=== PATIENT | female | born 1980 | race Caucasian/White ===

== ENCOUNTER 2017-10-29 05:34 | Outpatient (CLI) | payer OTHER ==
[~2017-10-29] VITALS: Ht 154.9 cm; Wt 67.1 kg
[~2017-10-29 05:34] MED LIST: HYDR-757 PO; NAPR-1071 PO; OXYC-202 PO
[2017-10-29] MEDS ORDERED: BCP PO (12:33)
== END 2017-10-29 12:44 ==
LOC: PREOP 05:34
PROVIDERS: ATTEND Surgery
DX: Z01.818 Encounter for other preprocedural examination (principal); K82.8 Other specified diseases of gallbladder

== ENCOUNTER 2018-08-03 06:15 | Outpatient (CLI) | payer OTHER ==
[~2018-08-03] VITALS: Ht 154.9 cm; Wt 62.6 kg
[~2018-08-03 06:15] MED LIST changes: +BCP PO; +HYDR-34 PO; +HYDR-4226 PO; -HYDR-757 PO; -OXYC-202 PO; +OXYC1TAB12 PO
[2018-08-03] MEDS ORDERED: MULT-35 PO (11:07)
== END 2018-08-03 11:10 | disposition home or self-care (01) ==
LOC: PREOP 06:15
PROVIDERS: ATTEND Surgery
DX: Z01.818 Encounter for other preprocedural examination (principal)

== ENCOUNTER 2018-08-08 11:21 | Day surgery (SDC) | payer OTHER ==
[~2018-08-08] VITALS: Ht 154.9 cm; Wt 62.6 kg
[~2018-08-08 11:21] MED LIST changes: +MULT-35 PO
[2018-08-08] MEDS ORDERED: LACTATED RINGERS 1,000 ML IV STA (11:39)
[2018-08-08] MEDS ORDERED: HURRICAINE EXT TUBE (BENZOCAINE) XX PRN (11:45)
[2018-08-08] MEDS ORDERED: LACTATED RINGERS 1,000 ML IV ONE (11:45)
[2018-08-08 12:00] VITALS: BP 125/81
[2018-08-08] MEDS ORDERED: PROPOFOL INJECTION 50 ML IV ONE (12:32)
[2018-08-08] MEDS ORDERED: MIDAZOLAM 2 MG/2 ML (VERSED) VIAL ONE (12:33)
--- NOTE | 2018-08-08 12:41 | Progress Note-Pre Operative ---
Pre-Operative Progress Note H&P Reviewed The H&P was reviewed, patient examined and no changes noted. Time Seen by Provider: 12:34 Date H&P Reviewed: Aug 08, 2018 Time H&P Reviewed: 12:35 Pre-Operative Diagnosis: Rectal Bleed, Gastritis ANTWAN DEL RIO DO Aug 08, 2018 12:41
--- NOTE | 2018-08-08 13:14 | Progress Note-Post Operative ---
Post-Operative Progess Note Surgeon (s)/Fourth Grade Teacher (s) Surgeon ANTWAN DEL RIO DO Fourth Grade Teacher: NELLY Lance Pre-Operative Diagnosis Rectal Bleed, Gastritis Post-Operative Diagnosis Gastritis small hiatal hernia Internal hemorrhoids Procedure & Operative Findings Date of Procedure 08/08/18 Procedure Performed/Findings EGD with bx Colonoscopy Anesthesia Type IV sedation by ASSISTANT PROFESSOR OF ARCHAEOLOGY Estimated Blood Loss Estimated blood loss (mL): scant Specimens/Packing Specimens Removed Antral bx GE jxn bx ANTWAN DEL RIO DO Aug 08, 2018 13:14
--- NOTE | 2018-08-08 13:16 | Endoscopy Discharge Instruct ---
Endo Procedure/Findings Findings 1.: Gastritis 2.: Hiatal Hernia 3.: Internal Hemorrhoids Discharge Instructions - Activity: You might feel a little sleepy until tomorrow. This is due to the medicine you received to relax you. Until tomorrow, you should: NOT drive a car, operate machinery or power tools. NOT drink any alcoholic beverages. NOT make any important decisions or sign importortant papers. Do not return to work until tomorrow, unless otherwise instructed. Resume previous activities tomorrow. Diet: Start by taking liquids. If you tolerate liquids, advance to solid food. make appointment for one week Notify Physician - If you experience excessive bleeding, unusual abdominal pain, fever, or chest pain, contact your doctor immediately. Follow-Up: - I have received and understand the above instructions and will call my doctor if I have any further questions. Patient Signature Date Nurse Signature Other (Relationship) ANTWAN DEL RIO DO Aug 08, 2018 13:16
[2018-08-08 13:20] VITALS: BP 137/79
--- NOTE | 2018-08-08 13:24 | Anesthesia-General Post-Op ---
General Patient Condition Mental Status/LOC: Same as Preop Cardiovascular: Satisfactory Nausea/Vomiting: Absent Respiratory: Satisfactory Pain: Controlled Complications: Absent Post Op Complications Complications None Follow Up Care/Instructions Patient Instructions None needed. Anesthesia/Patient Condition Patient Condition Patient is doing well, no complaints, stable vital signs, no apparent adverse anesthesia problems. No complications reported per nursing. RITA BROWNING CRNA Aug 08, 2018 13:24
[2018-08-08 13:50] VITALS: BP 112/82
[2018-08-08 14:01] VITALS: BP 112/82
--- NOTE | 2018-08-09 03:23 | OPERATIVE REPORT ---
DATE OF SERVICE: 08/08/2018 PREOPERATIVE DIAGNOSIS: Rectal bleed, chronic gastritis. POSTOPERATIVE DIAGNOSES: 1. Gastritis. 2. Hiatal hernia. 3. Rectal bleed. 4. Internal hemorrhoids. PROCEDURE: 1. EGD with biopsy. 2. Colonoscopy. SURGEON: Hudson Polanco DO. TRADER: COLEMAN Davidson. ANESTHESIA: IV sedation by the ENTERTAINMENT REPORTER. SPECIMEN: Biopsy of the antrum as well as biopsy of the GE junction. BLOOD LOSS: Scant. FLUIDS: Per anesthesia. POSTOPERATIVE CONDITION: Stable. INDICATION FOR PROCEDURE: The patient is a 37-year-old female who has been having some rectal bleeding. Also noted to have some chronic gastritis and needed EGD and colonoscopy. FINDINGS: The patient had some gastritis, little bit of change, possible change in the GE junction and a small hiatal hernia and during the colonoscopy found to have a pretty large, at least grade II internal hemorrhoids. PROCEDURE NOTE: After informed consent was obtained, the patient was brought to the endoscopy suite and placed in the bed left lateral decubitus position. She was administered IV sedation by the ENTERTAINMENT REPORTER who then monitored her vitals the entire time, heart rate, blood pressure and pulse ox, pushed the scope down the mouth through the esophagus into the stomach. Upon entering the stomach, noted some gastritis, took a picture of this portion of the duodenum. First portion of the duodenum looked good. Pulled back into the antrum, did a biopsy of the antrum. Retroflexed the scope, saw a small hiatal hernia, took a picture of this then pulled back into the GE junction, took a biopsy of the GE junction and then slowly pulled the scope out of the stomach up the esophagus and out the mouth. Switched gloves and switched scopes and started the colonoscopy. Pushed the scope in, all the way to about 140 cm, able to get to the cecum, took a picture of appendiceal orifice and able to get into the terminal ileum, took a picture and then slowly withdrew the scope insufflating to look circumferentially at the peoples looking at the cecum, up the ascending colon to the hepatic flexure, then down the transverse colon, the splenic flexure, into the descending colon and then down the sigmoid and finally into the rectum, retroflexed in the rectal vault, saw some pretty large internal hemorrhoids, most likely the cause of her rectal bleeding. Took a picture of these and then removed the scope. The patient tolerated procedure. She was recovered in endoscopy. Job ID: [id number] DocumentID: [id number] Dictated Date: 08/08/2018 15:54:08 Pr Manager Date: 08/09/2018 03:22:51 Dictated By: HUDSON POLANCO DO
== END 2018-08-08 14:00 | disposition home or self-care (01) ==
LOC: ENDO 11:21
PROVIDERS: ATTEND Surgery
DX: K29.50 Unspecified chronic gastritis without bleeding (principal); K44.9 Diaphragmatic hernia without obstruction or gangrene; K64.1 Second degree hemorrhoids; K62.5 Hemorrhage of anus and rectum; Z80.0 Family history of malignant neoplasm of digestive organs; Z88.5 Allergy status to narcotic agent
CPT/HCPCS: 84703

== ENCOUNTER 2018-09-08 06:31 | Outpatient (CLI) | payer OTHER ==
[~2018-09-08] VITALS: Ht 154.9 cm; Wt 62.6 kg
== END 2018-09-08 13:21 | disposition home or self-care (01) ==
LOC: PREOP 06:31
PROVIDERS: ATTEND Obstetrics & Gynecology
DX: Z01.818 Encounter for other preprocedural examination (principal)

== ENCOUNTER 2018-09-12 11:47 | Day surgery (SDC) | payer OTHER ==
[~2018-09-12] VITALS: Ht 154.9 cm; Wt 62.6 kg
--- OUTSIDE RECORDS SUMMARY | 2018-09-12 11:50 | XMS REPORT ---
Author Author LUKAS WRIGHT Organization [facility] Address [address] [place] [address] Care Team Providers Care Disability Advocate Name Role Phone LUKAS WRIGHT Unavailable PROBLEMS Type Condition ICD9-CM Code NUL62-MJ Code Onset Dates Condition Status SNOMED Code Problem Endometriosis determined by laparoscopy N80.9 Active 549902854 ALLERGIES No Information ENCOUNTERS Encounter Location Date Diagnosis [facility] [address] [address] Jul, Encounter for Depo-Provera contraception Z30.42 [place] [id number] [address] Jul, [facility] [address] [address] Jul, Right upper quadrant pain R10.11 [facility] [address] [address] Jun, [facility] [address] [address] May, Hemorrhoid prolapse K64.8 [facility] [address] [address] May, Encounter for immunization Z23 [facility] [address] [address] May, Endometriosis determined by laparoscopy N80.9 and Encounter for Depo-Provera contraception Z30.42 [facility] [address] [place] [id number] [place] [address] Mar, Right ear pain H92.01 [facility] [address] [address] Mar, [facility] [address] [place] [address] January, Endometriosis determined by laparoscopy N80.9 and Encounter for Depo-Provera contraception Z30.42 [facility] [address] [place] [id number] Oct, Dental examination Z01.20 [facility] [id number] [place] [address] [id number] Sep, Dental examination Z01.20 [facility] [id number] [place] [address] [phone] Sep, Encounter for dental exam and cleaning w/o abnormal findings Z01.[address] [facility] [address] [id number] [place] [address] Jun, Sore throat J02.9 and Acute nasopharyngitis (common cold) J00 [facility] [address] [place] [place] [id number] [place] [address] Apr, Acute middle ear effusion, bilateral H65.193 [facility] [id number] [place] [address] [id number] Mar, Encounter for dental examination Z01.20 [facility] [address] [place] [address] Nov, Acute suppurative otitis media of right ear without spontaneous rupture of tympanic membrane, recurrence not specified H66.001 [facility] [address] [place] [address] Oct, Otalgia of both ears H92.03 [facility] [address] [place] [id number] [place] [phone] Jul, Allergic rhinitis J30.9 [facility] [address] [place] [id number] [place] [address] 36[address] Dec, [facility] [address] [place] [id number] [address] Dec, [facility] [address] [facility] [id number] [address] Feb, [facility] [address] [facility] [id number], [place] [address] Nov, [facility] [address] [facility] [id number], [place] [address] Nov, IMMUNIZATIONS Vaccine Route Administration Date Status DEPO PROVERA (150 MG/ML) IM Intramuscular Aug 17, 2018 Administered SOCIAL HISTORY Never Assessed REASON FOR VISIT Depo Provera [id number]-[id number],RMA PLAN OF CARE Activity Details Follow Up 3 Months Reason: Pending Test TEST, URINE (IN HOUSE) VITAL SIGNS MEDICATIONS Unknown Medications RESULTS No Results PROCEDURES Procedure Date Ordered Result Body Site DEPO PROVERA (150 MG/ML) Aug 17, 2018 THER/PROPH/DIAG INJ, SC/IM Aug 17, 2018 URINE TEST Aug 17, 2018 INSTRUCTIONS MEDICATIONS ADMINISTERED No Known Medications MEDICAL (GENERAL) HISTORY Type Description Date Medical History Hx of Eczema Surgical History tubal ligation 2010 Surgical History right ovary removed 2015 Surgical History gall bladder 2018 Hospitalization History Hospitalization for surgery only
--- OUTSIDE RECORDS SUMMARY | 2018-09-12 11:50 | XMS REPORT ---
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.0 Active 52456330 Problem Contact dermatitis and other eczema, due to unspecified cause 692.9 Active 90136765 Problem Acute sinusitis, unspecified 461.9 Active 93727606 Problem Other seborrheic dermatitis 690.18 Active 41129109 ALLERGIES Substance Reaction Event Type Date Status Codeine Unknown Drug Allergy May, Active ENCOUNTERS Encounter Location Date Diagnosis [facility] [address] [address] May, Encounter for immunization Z23 [facility] [address] [address] May, Endometriosis determined by laparoscopy N80.9 and Encounter for Depo-Provera contraception Z30.42 [facility] [address] [place] [place] [id number] [place] [address] Mar, Right ear pain H92.01 [facility] [address] [place] [id number] [place] [address] Mar, [facility] [address] [address] January, Endometriosis determined by laparoscopy N80.9 and Encounter for Depo-Provera contraception Z30.42 [facility] [address] [place] [address] [id number] [place] [address] [phone] Oct, Dental examination Z01.20 [facility] [address] [phone] Sep, Dental examination Z01.20 [facility] [address] [id number] Sep, Encounter for dental exam and cleaning w/o abnormal findings Z01.20 [facility] [address] [place] [id number] [place] [address] Jun, Sore throat J02.9 and Acute nasopharyngitis (common cold) J00 [facility] [address] [address] Apr, Acute middle ear effusion, bilateral H65.193 [facility] [address] [id number] [place] [address] [phone] Mar, Encounter for dental examination Z01.20 [facility] [address] [phone] Nov, Acute suppurative otitis media of right ear without spontaneous rupture of tympanic membrane, recurrence not specified H66.001 [facility] [address] [place] [id number] [place] [address] Oct, Otalgia of both ears H92.03 [facility] [address] [place] [id number] [place] [address] Jul, Allergic rhinitis J30.9 [facility] [address] [place] [id number] [place] [address] Dec, [facility] [address] [place] [id number] [place] [address] Dec, [facility] [address] [id number] Feb, [facility] [address] [place] [id number] [place] [id number] Nov, [facility] [address] [address] Nov, IMMUNIZATIONS Vaccine Route Administration Date Status DEPO PROVERA (150 MG/ML) IM Intramuscular Jun 01, 2018 Administered SOCIAL HISTORY Never Assessed REASON FOR VISIT follow up on endometriosis. Pt started the depo shot 3 months ago to try to help with the endometriosis, but she states that it did not help at all. DINORAH Green PLAN OF CARE Activity Details Follow Up 3 Months with Victorina neil pelvic pain Reason: VITAL SIGNS Height 60 in 2018-06-01 Weight 141.8 lbs 2018-06-01 Temperature 98.2 degrees Fahrenheit 2018-06-01 Heart Rate 69 bpm 2018-06-01 Respiratory Rate 18 2018-06-01 BMI 27.69 kg/m2 2018-06-01 Blood pressure systolic 128 mmHg 2018-06-01 Blood pressure diastolic 82 mmHg 2018-06-01 MEDICATIONS Medication Instructions Dosage Frequency Start Date End Date Duration Status Multi Vitamin Daily Active Depo-Provera 150 MG/ML Intramuscular 90 days 1 ml January, January, 90 days Active Cetirizine HCl 10 MG Orally Once a day 1 tablet as needed 24h Jul, Active RESULTS Name Result Date Reference Range TEST, URINE (IN HOUSE) 2018-06-01 RESULTS negative Lot # [id number] Control + Exp date 11/2019 PROCEDURES Procedure Date Ordered Result Body Site URINE TEST Jun 01, 2018 DEPO PROVERA (150 MG/ML) Jun 01, 2018 THER/PROPH/DIAG INJ, SC/IM Jun 01, 2018 INSTRUCTIONS MEDICATIONS ADMINISTERED No Known Medications MEDICAL (GENERAL) HISTORY Type Description Date Medical History Hx of Eczema Surgical History tubal ligation 2010 Surgical History right ovary removed 2015 Surgical History gall bladder 2018 Hospitalization History Hospitalization for surgery only
--- OUTSIDE RECORDS SUMMARY | 2018-09-12 11:50 | XMS REPORT ---
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 00674562 Problem Contact dermatitis and other eczema, due to unspecified cause 692.9 Active 66508897 Problem Acute sinusitis, unspecified 461.9 Active 55596919 Problem Other seborrheic dermatitis 690.18 Active 76133336 ALLERGIES No Information ENCOUNTERS Encounter Location Date Diagnosis [facility] [address] [address] Jun, [facility] [address] [address] May, Hemorrhoid prolapse K64.8 [facility] [address] [address] May, 2018 Encounter for immunization Z23 [facility] [address] [address] 05 May, 2018 Endometriosis determined by laparoscopy N80.9 and Encounter for Depo-Provera contraception Z30.42 [facility] [address] [address] Mar, Right ear pain H92.01 [facility] [address] [address] Mar, [facility] [address] [address] January, Endometriosis determined by laparoscopy N80.9 and Encounter for Depo-Provera contraception Z30.42 [facility] [address] [place] [address] [phone] Oct, Dental examination Z01.20 [facility] [address] [place] [id number] [place] [address] [phone] Sep, Dental examination Z01.20 [facility] [address] [place] [id number] [place] [address] [phone] Sep, Encounter for dental exam and cleaning w/o abnormal findings Z01.20 [facility] [address] [address] Jun, Sore throat J02.9 and Acute nasopharyngitis (common cold) J00 [facility] [address] [address] Apr, Acute middle ear effusion, bilateral H65.193 [facility] [address] [id number] Mar, Encounter for dental examination Z01.20 [facility] [address] [address] Nov, Acute suppurative otitis media of right ear without spontaneous rupture of tympanic membrane, recurrence not specified H66.001 [facility] [address] [place] [id number] [place] [address] Oct, Otalgia of both ears H92.03 [facility] [address] [place] [id number] [place] [address] Jul, Allergic rhinitis J30.9 [facility] [address] [address] Dec, [facility] [address] [address] Dec, [facility] [address] [address] Feb, [facility] [address] [facility] [id number] [place] [id number] Nov, [facility] [address] [facility] [id number] [place] [id number] Nov, IMMUNIZATIONS Vaccine Route Administration Date Status FLULAVAL QUAD 0.5ML (6 MO & UP) 2018 IM Intramuscular Jun 20, 2018 Administered SOCIAL HISTORY Never Assessed REASON FOR VISIT Flu shot PLAN OF CARE VITAL SIGNS MEDICATIONS Unknown Medications RESULTS No Results PROCEDURES Procedure Date Ordered Result Body Site FLULAVAL QUAD 0.5ML (6 MO AND UP) 2018 Jun 20, 2018 SINGLE IMMUNIZATION ADMIN Jun 20, 2018 INSTRUCTIONS MEDICATIONS ADMINISTERED No Known Medications MEDICAL (GENERAL) HISTORY Type Description Date Medical History Hx of Eczema Surgical History tubal ligation 2010 Surgical History right ovary removed 2015 Surgical History gall bladder 2018 Hospitalization History Hospitalization for surgery only
--- OUTSIDE RECORDS SUMMARY | 2018-09-12 11:50 | XMS REPORT ---
Author Author LUKAS WRIGHT Organization [facility] Address [address] [place] [address] Care Team Providers Care Seed Laboratory Technician Name Role Phone LUKAS WRIGHT Unavailable PROBLEMS Type Condition ICD9-CM Code UQY86-EO Code Onset Dates Condition Status SNOMED Code Problem Endometriosis determined by laparoscopy N80.9 Active 110375582 ALLERGIES Substance Reaction Event Type Date Status Codeine Unknown Drug Allergy Jul, Active ENCOUNTERS Encounter Location Date Diagnosis [place] [id number] [address] Jul, Right upper quadrant pain R10.11 [place] [address] [address] Jun, [facility] [address] [address] May, Hemorrhoid prolapse K64.8 [facility] [address] [address] May, Encounter for immunization Z23 [facility] [address] [address] May, Endometriosis determined by laparoscopy N80.9 and Encounter for Depo-Provera contraception Z30.42 [facility] [address] [address] Mar, Right ear pain H92.01 [facility] [address] [address] Mar, [facility] [address] [address] January, Endometriosis determined by laparoscopy N80.9 and Encounter for Depo-Provera contraception Z30.42 [facility] [address] [id number] Oct, Dental examination Z01.20 [facility] [address] [place] [id number] [place] [address] [phone] Sep, Dental examination Z01.20 [facility] [address] [place] [id number] [place] [address] [phone] Sep, Encounter for dental exam and cleaning w/o abnormal findings Z01.20 [facility] [address] [place] [id number] [place] [address] Jun, Sore throat J02.9 and Acute nasopharyngitis (common cold) J00 [facility] [address] [place] [id number] [place] [address] 334949 [address] Apr, Acute middle ear effusion, bilateral H65.193 [facility] [address] [place] [id number] [place] [address] [id number] Mar, Encounter for dental examination Z01.20 [facility] [address] [place] [id number] [place] [address] Nov, Acute suppurative otitis media of right ear without spontaneous rupture of tympanic membrane, recurrence not specified H66.001 [facility] [address] [place] [address] Oct, Otalgia of both ears H92.03 [facility] [address] [place] [id number] [place] [address] Jul, Allergic rhinitis J30.9 [facility] [address] [place] [id number] [place] [address] Dec, [facility] [address] [place] [id number] [place] [address] Dec, [facility] [address] [place] [address] [id number] [place] [address] Feb, [facility] [address] [place] [address] [id number] [address] Nov, [facility] [address] [facility] [id number] [place] [address] Nov, IMMUNIZATIONS No Known Immunizations SOCIAL HISTORY Never Assessed REASON FOR VISIT Pt c/o that since yesterday she has felt a twitching sensation on her right side. States it is not painful, but it is very annoying to her.-awoods PLAN OF CARE Activity Details Follow Up prn Reason: VITAL SIGNS Height 60 in 2018-07-28 Weight 139.7 lbs 2018-07-28 Temperature 98.2 degrees Fahrenheit 2018-07-28 Heart Rate 90 bpm 2018-07-28 Respiratory Rate 18 2018-07-28 BMI 27.28 kg/m2 2018-07-28 Blood pressure systolic 112 mmHg 2018-07-28 Blood pressure diastolic 62 mmHg 2018-07-28 MEDICATIONS Medication Instructions Dosage Frequency Start Date End Date Duration Status Cetirizine HCl 10 MG Orally Once a day 1 tablet as needed 24h Jul, Active Depo-Provera 150 MG/ML Intramuscular 90 days 1 ml January, January, 90 days Active Multi Vitamin Daily Active RESULTS No Results PROCEDURES No Known procedures INSTRUCTIONS MEDICATIONS ADMINISTERED No Known Medications MEDICAL (GENERAL) HISTORY Type Description Date Medical History Hx of Eczema Surgical History tubal ligation 2010 Surgical History right ovary removed 2015 Surgical History gall bladder 2018 Hospitalization History Hospitalization for surgery only
--- OUTSIDE RECORDS SUMMARY | 2018-09-12 11:50 | XMS REPORT ---
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 28430902 Problem Contact dermatitis and other eczema, due to unspecified cause 692.9 Active 40271796 Problem Acute sinusitis, unspecified 461.9 Active 59265419 Problem Other seborrheic dermatitis 690.18 Active 42174918 ALLERGIES Substance Reaction Event Type Date Status Codeine Unknown Drug Allergy May, Active ENCOUNTERS Encounter Location Date Diagnosis [facility] [address] [address] Jun, [facility] [address] [address] May, Hemorrhoid prolapse K64.8 [facility] [address] [address] May, Encounter for immunization Z23 [facility] [address] [address] May, Endometriosis determined by laparoscopy N80.9 and Encounter for Depo-Provera contraception Z30.42 [facility] [address] [address] Mar, Right ear pain H92.01 [facility] [id number] [place] [address] Mar, [facility] [address] [address] January, Endometriosis determined by laparoscopy N80.9 and Encounter for Depo-Provera contraception Z30.42 [facility] [id number] [place] [address] [id number] Oct, Dental examination Z01.20 [facility] [address] [place] [address] [id number] Sep, Dental examination Z01.20 [facility] [id number] [place] [address] [id number] Sep, Encounter for dental exam and cleaning w/o abnormal findings Z01.20 [facility] [address] [address] Jun, Sore throat J02.9 and Acute nasopharyngitis (common cold) J00 [facility] [id number] [place] [address] [phone] Apr, Acute middle ear effusion, bilateral H65.193 [facility] [id number] [place] [address] [id number] Mar, Encounter for dental examination Z01.20 [facility] [id number] [place] [address] Nov, Acute suppurative otitis media of right ear without spontaneous rupture of tympanic membrane, recurrence not specified H66.001 [facility] [address] [place] [address] Oct, Otalgia of both ears H92.03 [facility] [id number] [place] [address] Jul, Allergic rhinitis J30.9 [facility] [address] 2559[address] Dec, [facility] [id number] [place] [address] Dec, [facility] [id number] [place] [address] Feb, [facility] [address] [facility] [id number] [place] [address] Nov, [facility] [address] [facility] [id number] [place] [address] Nov, IMMUNIZATIONS No Known Immunizations SOCIAL HISTORY Never Assessed REASON FOR VISIT pt states she had some rectal bleeding this morning and has a hx of hemorrhoids. DINORAH Green PLAN OF CARE Activity Details Follow Up prn Reason: VITAL SIGNS Height 60 in 2018-06-24 Weight 137.3 lbs 2018-06-24 Temperature 97.8 degrees Fahrenheit 2018-06-24 Heart Rate 86 bpm 2018-06-24 Respiratory Rate 18 2018-06-24 BMI 26.81 kg/m2 2018-06-24 Blood pressure systolic 144 mmHg 2018-06-24 Blood pressure diastolic 82 mmHg 2018-06-24 MEDICATIONS Medication Instructions Dosage Frequency Start Date [...]
--- OUTSIDE RECORDS SUMMARY | 2018-09-12 11:50 | XMS REPORT ---
Author Author LUKAS WRIGHT Organization [facility] Address [address] [place] [address] Care Team Providers Care Export Agent Name Role Phone LUKAS WRIGHT Unavailable PROBLEMS Type Condition ICD9-CM Code [id number] Code Onset Dates Condition Status SNOMED Code Problem Endometriosis determined by laparoscopy N80.9 Active 564208506 ALLERGIES No Information ENCOUNTERS Encounter Location Date Diagnosis [facility] [address] [address] Jul, [facility] [address] [address] Jul, Right upper quadrant pain R10.11 [facility] [address] [address] Jun, [facility] [address] [address] May, Hemorrhoid prolapse K64.8 [facility] [address] [address] May, Encounter for immunization Z23 [facility] [address] [address] May, Endometriosis determined by laparoscopy N80.9 and Encounter for Depo-Provera contraception Z30.42 [facility] [address] [address] Mar, Right ear pain H92.01 [facility] [address] [address] Mar, [facility] [address] [address] January, Endometriosis determined by laparoscopy N80.9 and Encounter for Depo-Provera contraception Z30.42 [facility] [id number] [place] [address] [id number] Oct, Dental examination Z01.20 [facility] [id number] [place] [address] [phone] Sep, Dental examination Z01.20 [facility] [address] [id number] Sep, Encounter for dental exam and cleaning w/o abnormal findings Z01.20 [facility] [address] [address] Jun, Sore throat J02.9 and Acute nasopharyngitis (common cold) J00 [facility] [address] [address] Apr, Acute middle ear effusion, bilateral H65.193 [facility] [address] [id number] Mar, Encounter for dental examination Z01.20 [facility] [address] [address] Nov, Acute suppurative otitis media of right ear without spontaneous rupture of tympanic membrane, recurrence not specified H66.001 [facility] [id number] [place] [address] Oct, Otalgia of both ears H92.03 [facility] [id number] [place] [address] Jul, Allergic rhinitis J30.9 [facility] [address] [address] 14 Dec, 2014 [facility] [address] [address] 13 Dec, 2014 [facility] [address] [address] Feb, [facility] [address] [facility] [id number] [place] [address] Nov, [facility] [address] [facility] [id number] [place] [address] Nov, IMMUNIZATIONS No Known Immunizations SOCIAL HISTORY Never Assessed REASON FOR VISIT Medication Request PLAN OF CARE VITAL SIGNS MEDICATIONS Medication Instructions Dosage Frequency Start Date End Date Duration Status MiraLax - as directed by surgeon Jul, Active RESULTS No Results PROCEDURES No Known procedures INSTRUCTIONS MEDICATIONS ADMINISTERED No Known Medications MEDICAL (GENERAL) HISTORY Type Description Date Medical History Hx of Eczema Surgical History tubal ligation 2010 Surgical History right ovary removed 2015 Surgical History gall bladder 2018 Hospitalization History Hospitalization for surgery only
--- OUTSIDE RECORDS SUMMARY | 2018-09-12 11:50 | XMS REPORT ---
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 22002006 Problem Contact dermatitis and other eczema, due to unspecified cause 692.9 Active 10943045 Problem Acute sinusitis, unspecified 461.9 Active 01699387 Problem Other seborrheic dermatitis 690.18 Active 16794312 ALLERGIES No Information ENCOUNTERS Encounter Location Date Diagnosis [facility] [address] [address] Jun, [facility] [address] [address] May, Hemorrhoid prolapse K64.8 [facility] [address] [address] May, 2018 Encounter for immunization Z23 [facility] [address] [address] 05 May, 2018 Endometriosis determined by laparoscopy N80.9 and Encounter for Depo-Provera contraception Z30.42 [facility] [address] [address] Mar, Right ear pain H92.01 [facility] [address] [address] Mar, [facility] [address] [address] January, Endometriosis determined by laparoscopy N80.9 and Encounter for Depo-Provera contraception Z30.42 [facility] [address] [place] [address] [id number] Oct, Dental examination Z01.20 [facility] [id number] [place] [address] [id number] Sep, Dental examination Z01.20 [facility] [id number] [place] [address] [id number] Sep, Encounter for dental exam and cleaning w/o abnormal findings Z01.20 [facility] [address] [address] Jun, Sore throat J02.9 and Acute nasopharyngitis (common cold) J00 [facility] [address] [address] Apr, Acute middle ear effusion, bilateral H65.193 [facility] [address] [id number] Mar, Encounter for dental examination Z01.20 [facility] [address] [address] Nov, Acute suppurative otitis media of right ear without spontaneous rupture of tympanic membrane, recurrence not specified H66.001 [facility] [id number] [place] [address] Oct, Otalgia of both ears H92.03 [facility] [id number] [place] [address] Jul, Allergic rhinitis J30.9 [facility] [address] [address] Dec, [facility] [address] [address] Dec, [facility] [address] [address] Feb, [facility] [address] [facility] [id number] [place] [address] Nov, [facility] [address] [facility] [id number] [place] [id number] Nov, IMMUNIZATIONS No Known Immunizations SOCIAL HISTORY Never Assessed REASON FOR VISIT Referral PLAN OF CARE VITAL SIGNS MEDICATIONS Unknown Medications RESULTS No Results PROCEDURES No Known procedures INSTRUCTIONS MEDICATIONS ADMINISTERED No Known Medications MEDICAL (GENERAL) HISTORY Type Description Date Medical History Hx of Eczema Surgical History tubal ligation 2010 Surgical History right ovary removed 2015 Surgical History gall bladder 2018 Hospitalization History Hospitalization for surgery only
--- OUTSIDE RECORDS SUMMARY | 2018-09-12 11:51 | XMS REPORT ---
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 53621385 Problem Contact dermatitis and other eczema, due to unspecified cause 692.9 Active 39194376 Problem Acute sinusitis, unspecified 461.9 Active 77210774 Problem Other seborrheic dermatitis 690.18 Active 01147479 ALLERGIES Substance Reaction Event Type Date Status Codeine Unknown Drug Allergy January, Active ENCOUNTERS Encounter Location Date Diagnosis [facility] [address] [address] May, [facility] [address] [address] Mar, Right ear pain H92.01 [facility] [address] [address] Mar, [facility] [address] [address] January, Endometriosis determined by laparoscopy N80.9 and Encounter for Depo-Provera contraception Z30.42 [facility] [address] [id number] Oct, Dental examination Z01.20 [facility] [id number] [place] [address] [id number] Sep, Dental examination Z01.20 [facility] [id number] [place] [address] [id number] Sep, Encounter for dental exam and cleaning w/o abnormal findings Z01.20 [facility] [address] [place] [address] Jun, Sore throat J02.9 and Acute nasopharyngitis (common cold) J00 [facility] [id number] [place] [address] Apr, Acute middle ear effusion, bilateral H65.193 [facility] [id number] [place] [address] [id number] Mar, Encounter for dental examination Z01.20 [facility] [address] [address] Nov, Acute suppurative otitis media of right ear without spontaneous rupture of tympanic membrane, recurrence not specified H66.001 [facility] [id number] [place] [address] Oct, Otalgia of both ears H92.03 [facility] [id number] [place] [address] Jul, Allergic rhinitis J30.9 [place] [id number] [place] [address] 14 Dec, 2014 [place] [id number] [place] [address] Dec, [place] [id number] [place] [address] Feb, [facility] [id number] [place] [address] Nov, [place] [id number] [place] [address] Nov, IMMUNIZATIONS Vaccine Route Administration Date Status DEPO PROVERA (150 MG/ML) IM Intramuscular February 14, 2018 Administered SOCIAL HISTORY Never Assessed REASON FOR VISIT Endometriosis----DBennettRN PLAN OF CARE Activity Details Follow Up 6 Months with mayda neil menstral pain Reason: VITAL SIGNS Height 60 in 2018-02-14 Weight 141 lbs 2018-02-14 Temperature 98.1 degrees Fahrenheit 2018-02-14 Heart Rate 80 bpm 2018-02-14 Respiratory Rate 20 2018-02-14 BMI 27.53 kg/m2 2018-02-14 Blood pressure systolic 110 mmHg 2018-02-14 Blood pressure diastolic 64 mmHg 2018-02-14 MEDICATIONS Medication Instructions Dosage Frequency Start Date End Date Duration Status Depo-Provera 150 MG/ML Intramuscular 90 days 1 ml January, January, 90 days Active Cetirizine HCl 10 MG Orally Once a day 1 tablet as needed 24h Jul, Active Selenium Sulfide 2.5 % 1 Application by Topical route [address] for 3 min, then rinse Feb, Active Multi Vitamin Daily Active RESULTS Name Result Date Reference Range TEST, URINE (IN HOUSE) 2018-02-14 RESULTS negative Lot # [id number] Control + Exp date 07/27/2019 PROCEDURES Procedure Date Ordered Result Body Site URINE TEST February 14, 2018 DEPO PROVERA (150 MG/ML) February 14, 2018 THER/PROPH/DIAG INJ, SC/IM February 14, 2018 INSTRUCTIONS MEDICATIONS ADMINISTERED No Known Medications MEDICAL (GENERAL) HISTORY Type Description Date Medical History Hx of Eczema Surgical History tubal ligation 2010 Surgical History Hysterectomy/cyst removal 2015 Surgical History gall bladder 2018 Hospitalization History Hospitalization for surgery only
--- OUTSIDE RECORDS SUMMARY | 2018-09-12 11:51 | XMS REPORT ---
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 75419946 Problem Acute sinusitis, unspecified 461.9 Active 83198909 Problem Other seborrheic dermatitis 690.18 Active 22427200 Problem Contact dermatitis and other eczema, due to unspecified cause 692.9 Active 94126669 ALLERGIES Substance Reaction Event Type Date Status Codeine Unknown Drug Allergy Jun, Active ENCOUNTERS Encounter Location Date Diagnosis [facility] [address] [address] January, [facility] [address] [id number] Oct, Dental examination Z01.20 [facility] [address] [id number] Sep, Dental examination Z01.20 [facility] [address] [id number] Sep, Encounter for dental exam and cleaning w/o abnormal findings Z01.20 [facility] [address] [address] Jun, Sore throat J02.9 and Acute nasopharyngitis (common cold) J00 [facility] [address] [address] Apr, Acute middle ear effusion, bilateral H65.193 [facility] [address] [id number] Mar, Encounter for dental examination Z01.20 [facility] [address] [place] [address] Nov, Acute suppurative otitis media of right ear without spontaneous rupture of tympanic membrane, recurrence not specified H66.001 [facility] [id number] [place] [address] Oct, Otalgia of both ears H92.03 [facility] [id number] [place] [address] Jul, Allergic rhinitis J30.9 [place] [id number] [place] [address] 14 Dec, 2014 [place] [id number] [place] [address] Dec, [place] [id number] [place] [address] Feb, [place] [id number] [place] [address] Nov, [place] [id number] [place] [address] Nov, IMMUNIZATIONS Vaccine Route Administration Date Status DEXAMETHASONE 4MG/ML (PER 1 MG) IM Intramuscular Jul 16, 2017 Administered DEPO MEDROL 40 MG/ML IM Intramuscular Jul 16, 2017 Administered SOCIAL HISTORY Never Assessed REASON FOR VISIT Sore throat since last night. Took flonase this morning. diegotna PLAN OF CARE Activity Details Follow Up prn Reason: VITAL SIGNS Height 60 in 2017-07-16 Weight 136 lbs 2017-07-16 Temperature 98.5 degrees Fahrenheit 2017-07-16 Heart Rate 64 bpm 2017-07-16 Respiratory Rate 18 2017-07-16 BMI 26.56 kg/m2 2017-07-16 Blood pressure systolic 100 mmHg 2017-07-16 Blood pressure diastolic 72 mmHg 2017-07-16 MEDICATIONS Medication Instructions Dosage Frequency Start Date End Date Duration Status Cetirizine HCl 10 MG Orally Once a day 1 tablet as needed 24h 09 Nov, 2015 Active Selenium Sulfide 2.5 % 1 Application by Topical route 1 daily keep [address] place for 3 min, then rinse Feb, Active Multi Vitamin Daily Active RESULTS Name Result Date Reference Range STREP A (IN HOUSE) 2017-07-16 STREP A negative Control positive Lot # [id number] Exp date 06/26/18 PROCEDURES Procedure Date Ordered Result Body Site STREP A ASSAY W/OPTIC Jul 16, 2017 DEPO MEDROL 40 MG/ML Jul 16, 2017 DEXAMETHASONE 4MG/ML (PER 1 MG) Jul 16, 2017 THER/PROPH/DIAG INJ, SC/IM Jul 16, 2017 INSTRUCTIONS MEDICATIONS ADMINISTERED No Known Medications MEDICAL (GENERAL) HISTORY Type Description Date Medical History Hx of Eczema Surgical History tubal ligation 2010 Surgical History Hysterectomy/cyst removal 2015 Surgical History gall bladder 2018 Hospitalization History Hospitalization for surgery only
--- OUTSIDE RECORDS SUMMARY | 2018-09-12 11:51 | XMS REPORT ---
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 95037013 Problem Acute sinusitis, unspecified 461.9 Active 83166301 Problem Other seborrheic dermatitis 690.18 Active 53992250 Problem Contact dermatitis and other eczema, due to unspecified cause 692.9 Active 68966218 ALLERGIES Substance Reaction Event Type Date Status Codeine Unknown Drug Allergy Apr, Active ENCOUNTERS Encounter Location Date Diagnosis [facility] [address] [address] January, [facility] [address] [id number] Oct, Dental examination Z01.20 [facility] [address] [id number] Sep, Dental examination Z01.20 [facility] [address] [id number] Sep, Encounter for dental exam and cleaning w/o abnormal findings Z01.20 [facility] [address] [phone] Jun, Sore throat J02.9 and Acute nasopharyngitis (common cold) J00 [facility] [address] [address] Apr, Acute middle ear effusion, bilateral H65.193 [facility] [address] [id number] Mar, Encounter for dental examination Z01.20 [facility] [address] [address] Nov, Acute suppurative otitis media of right ear without spontaneous rupture of tympanic membrane, recurrence not specified H66.001 [facility] [id number] [place] [address] Oct, Otalgia of both ears H92.03 [facility] [id number] [place] [phone] Jul, Allergic rhinitis J30.9 [place] [id number] [place] [address] 2546 Dec, [place] [id number] [place] [phone] Dec, [place] [id number] [place] [address] 25[address] Feb, [place] [id number] [place] [phone] Nov, [place] [id number] [place] [phone] Nov, IMMUNIZATIONS Vaccine Route Administration Date Status DEXAMETHASONE 4MG/ML (PER 1 MG) IM Intramuscular Apr 30, 2017 Administered DEPO MEDROL 40 MG/ML IM Intramuscular Apr 30, 2017 Administered SOCIAL HISTORY Never Assessed REASON FOR VISIT Right ear pain x 1 day. DINORAH Gillespie. PLAN OF CARE Activity Details Follow Up prn Reason: VITAL SIGNS Height 60 in 2017-04-30 Weight 136 lbs 2017-04-30 Temperature 98.4 degrees Fahrenheit 2017-04-30 Heart Rate 68 bpm 2017-04-30 Respiratory Rate 20 2017-04-30 BMI 26.56 kg/m2 2017-04-30 Blood pressure systolic 132 mmHg 2017-04-30 Blood pressure diastolic 88 mmHg 2017-04-30 MEDICATIONS Medication Instructions Dosage Frequency Start Date End Date Duration Status Multi Vitamin Daily Active RESULTS No Results PROCEDURES Procedure Date Ordered Result Body Site DEPO MEDROL 40 MG/ML Apr 30, 2017 THER/PROPH/DIAG INJ, SC/IM Apr 30, 2017 DEXAMETHASONE 4MG/ML (PER 1 MG) Apr 30, 2017 INSTRUCTIONS MEDICATIONS ADMINISTERED No Known Medications MEDICAL (GENERAL) HISTORY Type Description Date Medical History Hx of Eczema Surgical History tubal ligation 2010 Surgical History Hysterectomy/cyst removal 2015 Surgical History gall bladder 2018 Hospitalization History Hospitalization for surgery only
--- OUTSIDE RECORDS SUMMARY | 2018-09-12 11:51 | XMS REPORT ---
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 86231188 Problem Contact dermatitis and other eczema, due to unspecified cause 692.9 Active 35020103 Problem Acute sinusitis, unspecified 461.9 Active 15904807 Problem Other seborrheic dermatitis 690.18 Active 29046293 ALLERGIES Substance Reaction Event Type Date Status Codeine Unknown Drug Allergy Sep, Active ENCOUNTERS Encounter Location Date Diagnosis [facility] [id number] [place] [phone] January, Endometriosis determined by laparoscopy N80.9 and Encounter for Depo-Provera contraception Z30.42 [facility] [id number] [place] [phone] Oct, Dental examination Z01.20 [facility] [id number] [place] [id number] Sep, Dental examination Z01.20 [facility] [id number] [place] [id number] Sep, Encounter for dental exam and cleaning w/o abnormal findings Z01.20 [facility] [id number] [place] [phone] Jun, Sore throat J02.9 and Acute nasopharyngitis (common cold) J00 [facility] [id number] [place] [address] Apr, Acute middle ear effusion, bilateral H65.193 [facility] [address] [id number] Mar, Encounter for dental examination Z01.20 [facility] [id number] [place] [address] Nov, Acute suppurative otitis media of right ear without spontaneous rupture of tympanic membrane, recurrence not specified H66.001 [facility] [id number] [place] [address] Oct, Otalgia of both ears H92.03 [facility] [id number] [place] [phone] Jul, Allergic rhinitis J30.9 [facility] [id number] [place] [phone] Dec, [facility] [id number] [place] [address] Dec, [facility] [id number] [place] [phone] Feb, [facility] [id number] [place] [address] Nov, [facility] [id number] [place] [phone] Nov, IMMUNIZATIONS No Known Immunizations SOCIAL HISTORY Never Assessed REASON FOR VISIT FILLING PLAN OF CARE Activity Details Follow Up 6 Months Reason:recall VITAL SIGNS Blood pressure systolic 126 mmHg 2017-10-25 Blood pressure diastolic 84 mmHg 2017-10-25 MEDICATIONS Medication Instructions Dosage Frequency Start Date End Date Duration Status Multi Vitamin Daily Active Cetirizine HCl 10 MG Orally Once a day 1 tablet as needed 24h Jul, Active Selenium Sulfide 2.5 % 1 Application by Topical route [address] for 3 min, then rinse Feb, Active RESULTS No Results PROCEDURES Procedure Date Ordered Result Body Site RESIN COMPOS - 2 SURFACES POSTERIOR Oct 25, 2017 [facility] Employee/Board adjustment Oct 25, 2017 Billing Notes on claim Oct 25, 2017 INSTRUCTIONS MEDICATIONS ADMINISTERED No Known Medications MEDICAL (GENERAL) HISTORY Type Description Date Medical History Hx of Eczema Surgical History tubal ligation 2010 Surgical History Hysterectomy/cyst removal 2015 Surgical History gall bladder 2018 Hospitalization History Hospitalization for surgery only
--- OUTSIDE RECORDS SUMMARY | 2018-09-12 11:51 | XMS REPORT ---
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 95680702 Problem Contact dermatitis and other eczema, due to unspecified cause 692.9 Active 25494731 Problem Acute sinusitis, unspecified 461.9 Active 85787458 Problem Other seborrheic dermatitis 690.18 Active 98811446 ALLERGIES Substance Reaction Event Type Date Status Codeine Unknown Drug Allergy Oct, Active ENCOUNTERS Encounter Location Date Diagnosis [facility] [address] [address] January, Endometriosis determined by laparoscopy N80.9 and Encounter for Depo-Provera contraception Z30.42 [facility] [address] [id number] Oct, Dental examination Z01.20 [facility] [address] [id number] Sep, Dental examination Z01.20 [facility] [address] [id number] Sep, Encounter for dental exam and cleaning w/o abnormal findings Z01.20 [facility] [address] [address] Jun, Sore throat J02.9 and Acute nasopharyngitis (common cold) J00 [facility] [address] [address] Apr, Acute middle ear effusion, bilateral H65.193 [facility] [address] [facility] [id number] [id number] Mar, Encounter for dental examination Z01.20 [facility] [id number] [place] [phone] Nov, Acute suppurative otitis media of right ear without spontaneous rupture of tympanic membrane, recurrence not specified H66.001 [facility] [id number] [place] [address] Oct, Otalgia of both ears H92.03 [facility] [id number] [place] [address] Jul, Allergic rhinitis J30.9 [place] [id number] [place] [address] Dec, [facility] [id number] [place] [address] Dec, [facility] [id number] [place] [address] Feb, [facility] [id number] [place] [phone] Nov, [facility] [id number] [place] [address] Nov, IMMUNIZATIONS No Known Immunizations SOCIAL HISTORY Never Assessed REASON FOR VISIT DIANNE PLAN OF CARE Activity Details Follow Up prn Reason:check #2 VITAL SIGNS MEDICATIONS Medication Instructions Dosage Frequency Start Date End Date Duration Status Cetirizine HCl 10 MG Orally Once a day 1 tablet as needed 24h Jul, Active Selenium Sulfide 2.5 % 1 Application by Topical route 1 daily keep in place for 3 min, then rinse Feb, Active Multi Vitamin Daily Active RESULTS No Results PROCEDURES Procedure Date Ordered Result Body Site INTRAORL-PERIAPICAL 1 FILM [id number] Nov 18, 2017 BITEWING - SINGLE FILM Nov 18, 2017 Billing Notes on claim Nov 18, 2017 [facility] Employee/Board adjustment Nov 18, 2017 INSTRUCTIONS MEDICATIONS ADMINISTERED No Known Medications MEDICAL (GENERAL) HISTORY Type Description Date Medical History Hx of Eczema Surgical History tubal ligation 2010 Surgical History Hysterectomy/cyst removal 2016 Surgical History gall bladder 2018 Hospitalization History Hospitalization for surgery only
--- OUTSIDE RECORDS SUMMARY | 2018-09-12 11:51 | XMS REPORT ---
Author Author TERRY CORTES [facility] Address [address] [place] [address] Care Team Providers Care Deputy Sheriff Chief Name Role Phone TERRY CORTES Unavailable PROBLEMS Type Condition ICD9-CM Code SVR80-LZ Code Onset Dates Condition Status SNOMED Code Problem Endometriosis determined by laparoscopy N80.9 Active 948121919 Problem Pityriasis versicolor 111.0 Active 76981920 Problem Contact dermatitis and other eczema, due to unspecified cause 692.9 Active 27140179 Problem Acute sinusitis, unspecified 461.9 Active 34783600 Problem Other seborrheic dermatitis 690.18 Active 91884158 ALLERGIES Substance Reaction Event Type Date Status Codeine Unknown Drug Allergy Mar, Active ENCOUNTERS Encounter Location Date Diagnosis [facility] [address] [address] May, Endometriosis determined by laparoscopy N80.9 and Encounter for Depo-Provera contraception Z30.42 [facility] [id number] [place] [phone] Mar, Right ear pain H92.01 [facility] [address] [address] Mar, [facility] [address] [address] January, Endometriosis determined by laparoscopy N80.9 and Encounter for Depo-Provera contraception Z30.42 [facility] [id number] [place] [id number] Oct, Dental examination Z01.20 [facility] [id number] [place] [phone] 29 Lonny, 2018 Dental examination Z01.20 [facility] [id number] [id number] Sep, Encounter for dental exam and cleaning w/o abnormal findings Z01.20 [facility] [id number] [place] [address] Jun, Sore throat J02.9 and Acute nasopharyngitis (common cold) J00 [facility] [id number] [place] [address] Apr, Acute middle ear effusion, bilateral H65.193 [facility] [id number] [place] [address] [id number] Mar, Encounter for dental examination Z01.20 [facility] [id number] [place] [phone] Nov, Acute suppurative otitis media of right ear without spontaneous rupture of tympanic membrane, recurrence not specified H66.001 [facility] [id number] [place] [address] Oct, Otalgia of both ears H92.03 [facility] IN [facility] [id number] [place] [address] Jul, Allergic rhinitis J30.9 [facility] [id number] [place] [phone] 14 Dec, 2014 [facility] [id number] [place] [address]36[phone] Dec, [facility] [id number] [place] [phone] Feb, [facility] [address] [address] Nov, [facility] [id number] [place] [phone] Nov, IMMUNIZATIONS No Known Immunizations SOCIAL HISTORY Never Assessed REASON FOR VISIT ear pain started this morning JStrasserRN PLAN OF CARE Activity Details Follow Up if not improving with PCP or reg follow up Reason: VITAL SIGNS Height 60 in 2018-04-25 Weight 141.6 lbs 2018-04-25 Temperature 98.1 degrees Fahrenheit 2018-04-25 Heart Rate 68 bpm 2018-04-25 Respiratory Rate 18 2018-04-25 BMI 27.65 kg/m2 2018-04-25 Blood pressure systolic 130 mmHg 2018-04-25 Blood pressure diastolic 82 mmHg 2018-04-25 MEDICATIONS Medication Instructions Dosage Frequency Start Date End Date Duration Status Depo-Provera 150 MG/ML Intramuscular 90 days 1 ml January, January, 90 days Active Amoxicillin 875 MG Orally every 12 hrs 1 tablet 12h 10 day(s) Active Cetirizine HCl 10 MG Orally Once a day 1 tablet as needed 24h Jul, Active Multi Vitamin Daily Active RESULTS No Results PROCEDURES No Known procedures INSTRUCTIONS MEDICATIONS ADMINISTERED No Known Medications MEDICAL (GENERAL) HISTORY Type Description Date Medical History Hx of Eczema Surgical History tubal ligation 2010 Surgical History right ovary removed 2015 Surgical History gall bladder 2018 Hospitalization History Hospitalization for surgery only
--- OUTSIDE RECORDS SUMMARY | 2018-09-12 11:51 | XMS REPORT ---
Author Author LUKAS WRIGHT Organization [facility] Address [address] [place] [address] Care Team Providers Care Bin Cleaner Name Role Phone LUKAS WRIGHT Unavailable PROBLEMS Type Condition ICD9-CM Code VGM93-XW Code Onset Dates Condition Status SNOMED Code Problem Endometriosis determined by laparoscopy N80.9 Active 044759083 Problem Pityriasis versicolor 111.0 Active 67975865 Problem Contact dermatitis and other eczema, due to unspecified cause 692.9 Active 94017260 Problem Acute sinusitis, unspecified 461.9 Active 71977899 Problem Other seborrheic dermatitis 690.18 Active 95407244 ALLERGIES No Information ENCOUNTERS Encounter Location Date Diagnosis [facility] [address] [address] May, Endometriosis determined by laparoscopy N80.9 and Encounter for Depo-Provera contraception Z30.42 [facility] [address] [phone] Mar, Right ear pain H92.01 [facility] [address] [address] Mar, [facility] [address] [address] January, Endometriosis determined by laparoscopy N80.9 and Encounter for Depo-Provera contraception Z30.42 [facility] [address] [id number] Oct, Dental examination Z01.20 [facility] [id number] [place] [phone] Sep, Dental examination Z01.20 [facility] [address] [id number] Sep, Encounter for dental exam and cleaning w/o abnormal findings Z01.20 [facility] [address] [place] [phone] Jun, Sore throat J02.9 and Acute nasopharyngitis (common cold) J00 [facility] [id number] [place] [address] Apr, Acute middle ear effusion, bilateral H65.193 [facility] [id number] [place] [phone] Mar, Encounter for dental examination Z01.20 [facility] [id number] [place] [phone] Nov, Acute suppurative otitis media of right ear without spontaneous rupture of tympanic membrane, recurrence not specified H66.001 [facility] [id number] [place] [phone] Oct, Otalgia of both ears H92.03 [facility] [place] [id number] [place] [phone] Jul, Allergic rhinitis J30.9 [facility] [id number] [place] [phone] 14 Dec, 2014 [place] [id number] [place] [address] [phone] Dec, [place] [id number] [place] [phone] Feb, [facility] [id number] [place] [phone] Nov, [place] [id number] [place] [address] [phone] Nov, IMMUNIZATIONS No Known Immunizations SOCIAL HISTORY Never Assessed REASON FOR VISIT eye exam PLAN OF CARE VITAL SIGNS MEDICATIONS No Known Medications RESULTS No Results PROCEDURES No Known procedures INSTRUCTIONS MEDICATIONS ADMINISTERED No Known Medications MEDICAL (GENERAL) HISTORY Type Description Date Medical History Hx of Eczema Surgical History tubal ligation 2010 Surgical History right ovary removed 2016 Surgical History gall bladder 2018 Hospitalization History Hospitalization for surgery only
--- OUTSIDE RECORDS SUMMARY | 2018-09-12 11:51 | XMS REPORT ---
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 Active 24678015 Problem Acute sinusitis, unspecified 461.9 Active 97427630 Problem Other seborrheic dermatitis 690.18 Active 83640001 Problem Contact dermatitis and other eczema, due to unspecified cause 692.9 Active 15294625 ALLERGIES Substance Reaction Event Type Date Status Codeine Unknown Drug Allergy Mar, Active ENCOUNTERS Encounter Location Date Diagnosis [facility] [address] [address] January, [facility] [address] [id number] Oct, Dental examination Z01.20 [facility] [address] [id number] Sep, Dental examination Z01.20 [facility] [address] [id number] Sep, Encounter for dental exam and cleaning w/o abnormal findings Z01.20 [facility] [address] [phone] Jun, Sore throat J02.9 and Acute nasopharyngitis (common cold) J00 [facility] [address] [address] Apr, Acute middle ear effusion, bilateral H65.193 [facility] [address] [id number] Mar, Encounter for dental examination Z01.20 [facility] [address] [address] Nov, Acute suppurative otitis media of right ear without spontaneous rupture of tympanic membrane, recurrence not specified H66.001 [facility] [address], [place] [address] Oct, Otalgia of both ears H92.03 [facility] [id number] [address] Jul, 2015 Allergic rhinitis J30.9 [facility] [id number] [place] [address] Dec, 2014 [facility] [id number] [place] [address] Dec, [facility] [id number] [place] [address] Feb, [facility] [id number] [place] [phone] Nov, [facility] [id number] [place] [phone] Nov, IMMUNIZATIONS No Known Immunizations SOCIAL HISTORY Never Assessed REASON FOR VISIT madhav brown PLAN OF CARE Activity Details Follow Up First Available Reason:LAMAR VITAL SIGNS Heart Rate 64 bpm 2017-04-26 Blood pressure systolic 114 mmHg 2017-04-26 Blood pressure diastolic 80 mmHg 2017-04-26 MEDICATIONS Medication Instructions Dosage Frequency Start Date End Date Duration Status Multi Vitamin Daily Active RESULTS No Results PROCEDURES Procedure Date Ordered Result Body Site INTRAORL-PERIAPICAL 1 FILM 15603 April 26, 2017 INTRAORL-PERIAPICAL EA ADD FILM April 26, 2017 Billing Notes on claim April 26, 2017 TOPICAL FLUORIDE VARNISH April 26, 2017 [facility] Employee/Board adjustment April 26, 2017 BITEWINGS - FOUR FILMS April 26, 2017 INTRAORL-PERIAPICAL EA ADD FILM April 26, 2017 PROPHYLAXIS - ADULT April 26, 2017 PANORAMIC FILM SEE ALSO CODE [id number] April 26, 2017 INSTRUCTIONS MEDICATIONS ADMINISTERED No Known Medications MEDICAL (GENERAL) HISTORY Type Description Date Medical History Hx of Eczema Surgical History tubal ligation 2010 Surgical History Hysterectomy/cyst removal 2016 Surgical History gall bladder 2018 Hospitalization History Hospitalization for surgery only
[2018-09-12 12:25] VITALS: BP 104/68
[2018-09-12] MEDS ORDERED: ONDANSETRON 4 MG/2 ML (SDV) Z0FRAN IV ONE (12:30)
[2018-09-12] MEDS ORDERED: SCOPOLAMINE 1.5 MG (TRANSDERM-SCOP) PATCH TOP ONE (12:30)
[2018-09-12] MEDS ORDERED: FAMOTIDINE 20MG/2ML IV (PEPCID) IV ONE (12:30)
[2018-09-12] MEDS ORDERED: ceFAZolin 1,000 MG/10 ML (ANCEF) VIAL ONE (12:31)
[2018-09-12] MEDS ORDERED: NS (IVPB) 50 ML ONE (12:31)
[2018-09-12] MEDS ORDERED: ceFAZolin INJECTION 1,000 MG in NS (IVPB) 50 ML IV ONE (12:45)
[2018-09-12] MEDS: LACTATED RINGERS 1,000 ML IV PRN ×2 (12:47→14:20)
[2018-09-12] MEDS ORDERED: BUP/EPI 0.5% 1:200,000 (SENSORCAINE) 30 ML VIAL ONE (14:03)
--- NOTE | 2018-09-12 14:04 | Progress Note-Pre Operative ---
Pre-Operative Progress Note H&P Reviewed The H&P was reviewed, patient examined and no changes noted. Date Seen by Provider: Sep 12, 2018 Time Seen by Provider: 14:04 Date H&P Reviewed: Sep 12, 2018 Time H&P Reviewed: 14:04 Pre-Operative Diagnosis: Chronic pelvic pain/dysmenorrhea/uterine prolapse KIRSTIN VERA MD Sep 12, 2018 14:04
--- NOTE | 2018-09-12 14:05 | Progress Note-Post Operative ---
Post-Operative Progess Note Surgeon (s)/Drywall Finishing Foreman (s) Surgeon KIRSTIN VERA MD Drywall Finishing Foreman: Leonie Cardoso Pre-Operative Diagnosis Chronic pelvic pain/dysmenorrhea/uterine prolapse Post-Operative Diagnosis Same with pathology pending Procedure & Operative Findings Date of Procedure 09/12/18 Procedure Performed/Findings TLH with bilateral salpingectomy Anesthesia Type GETA Estimated Blood Loss Estimated blood loss (mL): Minimal Specimens/Packing Specimens Removed Uterus and fallopian tubes Packing: KIRSTIN WRAY MD Sep 12, 2018 14:05
[2018-09-12] MEDS ORDERED: IBUP-1780 PO (14:11)
[2018-09-12] MEDS ORDERED: OXYC1TAB87 PO (14:11)
[2018-09-12] MEDS ORDERED: DOCU100C37 PO (14:11)
--- NOTE | 2018-09-12 14:12 | Discharge Instructions ---
Discharge Instructions Discharge Medications New, Converted or Re-Newed RX: RX on Chart Patient Instructions Patient Instructions: as directed Return to The Hospital For: as directed Activity & Diet Discharge Diet: No Restrictions Activity as Tolerated: No Orders-Post D/C & Referrals Follow Up Appt: Return to clinic on Wednesday, September 14, 2018 at 930 a.m. for staple removal Call to make follow up appt. for patient in 4 weeks. Activity: Rest for 24 hours, than as tolerated. Wound Care: May remove Band-Aid tomorrow. Replace as desired. Keep incisions clean and dry. Wash daily with soap and water. Please call in RX to patient pharmacy. Diet: As tolerated-Clear Liquids only if nauseated. May shower or tub bathe as desired. No driving for 24 hours, no alcoholic beverages for 24 hours, and nothing per vagina (no tampons, douching, or intercourse) for 8 weeks. Patient to return to the clinic as soon as possible for: Temperature greater than 101F, Severe Pain, Foul discharge from incision or vagina, Excessive Bleeding (more than a period). KIRSTIN VERA MD Sep 12, 2018 14:12
[2018-09-12] MEDS ORDERED: oxyCODONE/APAP 5/325MG (PERCOCET 5) TABLET PO PRN (14:15)
[2018-09-12] MEDS ORDERED: ONDANSETRON 4 MG/2 ML (SDV) Z0FRAN IVP PRN ×2 (14:15→16:00)
[2018-09-12] MEDS ORDERED: KETOROLAC 30 MG/ML VIAL IVP SCH (14:15)
[2018-09-12] MEDS ORDERED: PROMETHAZINE INJ 25 MG/ML (PHENERGAN) AMP IM PRN (14:15)
[2018-09-12] MEDS ORDERED: MEPERIDINE (DEMEROL) INJ 100 MG/ML IM PRN (14:15)
[2018-09-12] MEDS ORDERED: morphine INJ 10 MG/ML 1ML (SYR OR VIAL) ONE (15:56)
[2018-09-12] MEDS ORDERED: KETOROLAC 30 MG/ML VIAL ONE (15:56)
[2018-09-12] MEDS ORDERED: morphine INJ 10 MG/ML 1ML (SYR OR VIAL) IVP ONE (16:00)
[2018-09-12] MEDS ORDERED: HYDROmorphone 2 MG/ML VIAL (DILAUDID) IV ONE (16:00)
[2018-09-12] MEDS ORDERED: D5 LR IV SOLUTION 1,000 ML IV ONE (16:49)
[2018-09-12 16:56] VITALS: BP 112/76
[2018-09-12] MEDS: D5 LR IV SOLUTION 1,000 ML IV SCH (16:58)
[2018-09-12 17:55] VITALS: BP 114/78
[2018-09-12 22:26] VITALS: BP 106/74
[2018-09-12] MEDS: KETOROLAC 30 MG/ML VIAL IVP SCH (22:26)
[2018-09-13] MEDS: D5 LR IV SOLUTION 1,000 ML IV SCH (01:05)
[2018-09-13 01:24] VITALS: BP 104/68
[2018-09-13] MEDS: KETOROLAC 30 MG/ML VIAL IVP SCH (03:37)
--- NOTE | 2018-09-13 04:27 | OPERATIVE REPORT ---
DATE OF SERVICE: 09/12/2018 PREOPERATIVE DIAGNOSES: Chronic pelvic pain and dysmenorrhea and uterine descensus. POSTOPERATIVE DIAGNOSES: Chronic pelvic pain and dysmenorrhea and uterine descensus with likely extensive adenomyosis and with pelvic adhesions, likely uterine fibroids. OPERATIVE PROCEDURE: Total laparoscopic hysterectomy with left salpingo-oophorectomy and removal of staple line on the right. OPERATIVE DESCRIPTION: With the patient in the supine position under satisfactory general anesthesia, she was prepped and draped in the usual fashion for abdominal and vaginal surgery using robotic assistance. A weighted speculum placed in the posterior fornix of vagina, cervix exposed and grasped anteriorly with single tooth tenaculum. The uterus was sounded to 9 cm with uterine sound. The cervix was then serially dilated with Kailash dilators to accommodate a Caryn II manipulator, which was placed using a 6 mm x 8 cm uterine probe and a 30 mm colpotomy ring. The instrument was placed and the bulb filled with 10 mL of water and then sutures of #1 Vicryl placed at 3 and 9 o'clock position of the cervix to affix the uterus to the manipulator. Ellis catheter was placed in the urinary bladder and left to dependent drainage. The patient brought in low dorsal lithotomy position. A 12 mm incision was made 4 cm superior to the umbilicus. Veress needle was placed through that incision into the abdominal cavity and correct placement was confirmed with a water drop test. The abdomen was insufflated with 2.4 liters of carbon dioxide and the Veress needle was removed and a 12 mm Optiview laparoscopic port was placed through that incision. The abdominal wall was transilluminated and ports of 8 mm were placed through incisions of that size 9 cm lateral to the umbilicus at the level of the umbilicus. There was omentum adherent to the anterior site of the patient's umbilical incision. This was dealt with later. With the ports in place, the patient placed in Trendelenburg and the operative manipulator was positioned and docked, and operative instruments were placed in the right and left lateral ports. I proceeded with the case using a vessel sealer on the right. It was used to first grasp the adhesion at the end side of the umbilicus. It was clamped, cauterized and divided allowing the omentum to spill completely free and completely exposed the pelvis. The uterus was elevated. It was quite mottled, quite scarred appearing and the staple line on the right pelvic side wall. There was evidence of tubal sterilization remotely on the left. There was at least a hydrosalpinx if not a tubal mass of some sort in the distal fallopian tube. The ovary appeared fairly normal. There were a number of cysts appeared to be follicular cyst on the left ovary. Both ureters were seemed to peristalse freely. With the adhesion previously mentioned taken down, the staple line on the right was grasped and elevated using the vessel sealer. That tissue was clamped, cauterized and divided under the staple line in order to remove the staple line eventually with the uterus. The broad ligament was then clamped, cauterized and divided as was the round ligament, and then eventually the cardinal ligament. On the left side, the distal fallopian tube was grasped and elevated, and it was from the uterus using the vessel sealer until that tissue was completely free, leaving just the uterus and then the proximal portion of the fallopian tube remained attached to the uterus. The uteroovarian pedicle was clamped, cauterized and divided as was the round ligament, the broad ligament and eventually the cardinal ligament. The anterior lower uterine segment was exposed using a monopolar shear in place of the vessel sealer. The anterior lower uterine segment peritoneum was divided allowing the bladder to be dissected down off the lower uterine segment exposing the colpotomy ring under the vaginal wall anteriorly. A colpotomy incision was started at 12 o'clock position and continued circumferentially until the entire colpotomy ring was exposed. This allowed for the uterus, which was quite lobular, consistent with a fibroid as well to be extracted through the vagina with the proximal left fallopian tube and with the staple line from the right still attached. The distal fallopian tube on the left and the mass was sequentially brought out through the right lateral quadrant of the right lateral incisional port. The operative instruments were exchanged for a Cobra grasper and a Tae cut needle warehouse delivery driver. Using V-Loc barbed suture, the vaginal cuff was closed starting first on the right angle and continued to near the left angle and then starting from the left angle and coming back to close the entire balance of the cuff that suture was used to the left ovary to the round ligament pelvis and then to reapproximate the bladder peritoneum. Both ureters were seemed to peristalse as before and during the procedure, and were seen again now peristalse on completion of the hysterectomy. A close proximity was noted to the left ureter with the dissection and with the closure, but the ureter was free and clear, and peristalsing freely and was not seemed to be dilated. The operative instruments were now replaced with a monopolar shear on the left and a bipolar fenestrated grasper on the right. There were several implants of endometriosis in the cul-de-sac and the left ovarian fossae that were touched with electrocautery to destroy. There were some adhesions of the sigmoid, rectosigmoid to the cul-de-sac. These were taken down sharply with all the adhesions freed and with all the endometriosis implants that could be identified destroyed and with both ureters still peristalsing freely. The procedure was terminated. The operative instruments were removed under direct vision as were the ports. The abdomen was evacuated of insufflating gas in the process of removing the ports. The patient was brought out of Trendelenburg. There was no bleeding from the port sites. All three port sites were closed with madi after first closing the fascia at the supraumbilical port site with a [id number] suture of 2-0 Vicryl. The speculum was replaced in the vagina and the vaginal cuff examined, it was completely hemostatic and completely reapproximated. Sponge and needle counts were correct on completion of the procedure. Estimated blood loss was minimal. The patient tolerated the procedure well and was uneventfully awakened from her general anesthesia and transferred to recovery room in stable condition. Job ID: [id number] DocumentID: [id number] Dictated Date: 09/12/2018 15:46:12 Earthmoving Plant Operator Date: 09/13/2018 02:49:49 Dictated By: KIRSTIN VERA MD
[2018-09-13 07:31] VITALS: BP 100/62
--- NOTE | 2018-09-13 08:03 | Progress Note-Standard ---
Standard Progress Note Progress Notes/Assess & Plan Date Seen by a Provider: Sep 13, 2018 Time Seen by a Provider: 08:02 Progress/Assessment & Plan This patient is without complaint. She is ambulating, voiding, tolerating oral intake well has good pain control. Vital Signs 09/13/18 07:31 Temp 100.0 Pulse 80 Resp 16 B/P (MAP) 100/62 (75) Pulse Ox 98 O2 Delivery Room Air Vital signs are stable. Patient is afebrile. The abdomen is benign. Extreme show clubbing cyanosis. There is no Homans sign. Assessment and plan postoperative day number 1 doing well. Plan is for discharge follow-up in clinic. Final Diagnosis Chronic pelvic pain/dysmenorrhea/uterine prolapse KIRSTIN VERA MD Sep 13, 2018 08:02
[2018-09-13] MEDS ORDERED: IBUPROFEN 800 MG (MOTRIN) TAB PO ONE (08:16)
[2018-09-13] MEDS ORDERED: DOCUSATE SODIUM 100 MG (COLACE) CAP PO SCH (09:00)
--- NOTE | 2018-09-13 10:42 | Anesthesia-General Post-Op ---
General Patient Condition Mental Status/LOC: Same as Preop Cardiovascular: Satisfactory Nausea/Vomiting: Absent Respiratory: Satisfactory Pain: Controlled Complications: Absent Post Op Complications Complications None Follow Up Care/Instructions Patient Instructions None needed. Anesthesia/Patient Condition Patient Condition Patient is doing well, no complaints, stable vital signs, no apparent adverse anesthesia problems. No complications reported per nursing. TRICIA TAYLOR CRNA Sep 13, 2018 10:42
[2018-09-13] MEDS ORDERED: IBUPROFEN 800 MG (MOTRIN) TAB PO SCH (16:00)
== END 2018-09-13 09:15 | disposition home or self-care (01) ==
LOC: SDC 11:47 → WS 16:41 → SDC 09-13 09:15
PROVIDERS: ATTEND Obstetrics & Gynecology
DX: N94.6 Dysmenorrhea, unspecified (principal); N72 Inflammatory disease of cervix uteri; D25.1 Intramural leiomyoma of uterus; N80.0 Endometriosis of uterus; N83.8 Other noninflammatory disorders of ovary, fallopian tube and broad ligament; N81.4 Uterovaginal prolapse, unspecified; K21.9 Gastro-esophageal reflux disease without esophagitis
CPT/HCPCS: 36415; 84703; 86850; 86900; 86901; 87081; 88307; 94664

== ENCOUNTER → 2021-06-30 | Outpatient (CLI) | payer OTHER ==
[~2021-06-30] VITALS: Ht 154.9 cm; Wt 66.8 kg
[~2021-06-30] MED LIST changes: +CATHETER FLUSH 10 ML SYR IV PRN; +DOCU100C37 PO; +GADOBUTROL 7.5 MMOL/7.5 ML (GADAVIST) VIAL IV ONE; +IBUP-1780 PO; +IOHEXOL 300 MG/ML 50 ML (OMNIPAQUE 300) VIAL IV ONE; +OXYC1TAB87 PO
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
--- NOTE | 2021-06-30 14:41 | Diagnostic Imaging Report ---
INDICATION: Right shoulder injury. Patient was brought to the fluoroscopy suite and placed on table in the supine position. The skin of the right shoulder was prepped and draped in the usual sterile fashion. A small amount of 1% lidocaine was utilized for local anesthesia. 20-gauge needle was advanced into the right shoulder and placed with its tip at the rotator interval. A 15 mm solution of iodinated contrast, normal saline, and gadolinium was injected under fluoroscopic observation. A total of 8 seconds of fluoroscopic time was utilized. Two images were obtained. The needle was removed, and hemostasis was obtained. Patient tolerated the procedure well and left the department in stable condition. IMPRESSION: Successful right shoulder injection of gadolinium contrast solution, using fluoroscopy. Dictated by: Dictated on workstation # [id number]
== END ==
LOC: RAD 12:45
PROVIDERS: ATTEND Nurse Practitioner
DX: S43.491A Other sprain of right shoulder joint, initial encounter (principal); V89.2XXA Person injured in unspecified motor-vehicle accident, traffic, initial encounter
CPT/HCPCS: 23350; 73040; 73222

== ENCOUNTER → 2022-05-01 | Outpatient (CLI) | payer OTHER ==
[~2022-05-01] VITALS: Ht 154.9 cm; Wt 66.8 kg
[~2022-05-01] MED LIST changes: -CATHETER FLUSH 10 ML SYR IV PRN; -GADOBUTROL 7.5 MMOL/7.5 ML (GADAVIST) VIAL IV ONE; +GADOTERATE 0.5 MMOL/ML (CLARISCAN) 15 ML VIAL IV ONE; +GADOTERATE 0.5 MMOL/ML (CLARISCAN) 5 ML VIAL IV ONE; +IOHEXOL 240 MGI/ML 20 ML (OMNIPAQUE) VIAL IV ONE; +IOHEXOL 240 MGI/ML 50 ML (OMNIPAQUE) VIAL IV ONE; -IOHEXOL 300 MG/ML 50 ML (OMNIPAQUE 300) VIAL IV ONE
--- NOTE | 2022-05-01 14:06 | Diagnostic Imaging Report ---
INDICATION: Right shoulder pain. Patient presents for right shoulder injection prior to MRI. Patient was brought to the procedure room and placed on table in the supine position. The right shoulder was prepped and draped in the usual sterile fashion. A small amount of 1% lidocaine was utilized for local anesthesia. A 20-gauge needle was advanced into the right shoulder at the rotator interval. A 15 mL solution of iodinated contrast, normal saline, and gadolinium was injected under fluoroscopic observation. 10 seconds of fluoroscopic time was utilized. Images demonstrate intracapsular contrast. IMPRESSION: Successful right shoulder injection of gadolinium contrast solution, using fluoroscopy. Dictated by: Dictated on workstation # [id number]
--- NOTE | 2022-05-01 16:16 | Diagnostic Imaging Report ---
PROCEDURE: MRI upper extremity any joint with contrast right. TECHNIQUE: Multiplanar, multisequence contrast-enhanced MRI of the right upper extremity was accomplished. INDICATION: Right shoulder pain. Superior glenoid labrum lesion. Adhesive capsulitis. COMPARISON: 06/30/2021. FINDINGS: No acute fracture is seen in the right shoulder. Alignment appears normal. There is fluid signal anteriorly from the recent injection. The joint is well distended with contrast. The supraspinatus tendon is intact. The infraspinatus, teres minor, and subscapularis tendons appear intact. There is no muscular atrophy. The long head of the biceps tendon appears normal in course and signal. There is a small tear at the superior right glenoid labrum with contrast underlying the labrum which appears to be somewhat irregular. This extends anteriorly. There may be a small posterior labral tear from 9 o'clock down to 8 o'clock. There is no paralabral cyst. The acromion has a curved undersurface. The coracoclavicular and coracoacromial ligaments are intact. There is no thickening of the inferior glenohumeral ligament. IMPRESSION: 1. Tears of the superior and posterior right glenoid labrum. No paralabral cyst. 2. No findings of adhesive capsulitis. The joint is well distended with contrast. 3. No high-grade partial-thickness or full-thickness rotator cuff tear. Dictated by: Dictated on workstation # [id number]
== END ==
LOC: RAD 12:45
PROVIDERS: ATTEND Nurse Practitioner
DX: S43.431A Superior glenoid labrum lesion of right shoulder, initial encounter (principal); M75.01 Adhesive capsulitis of right shoulder; X58.XXXA Exposure to other specified factors, initial encounter
CPT/HCPCS: 23350; 73040; 73219